=== PATIENT | female | born 1990 | race Caucasian/White ===

== ENCOUNTER 2018-02-26 19:32 | Inpatient (IN) | payer BC ==
[~2018-02-26] VITALS: Ht 166.4 cm; Wt 83.9 kg
[~2018-02-26 19:32] MED LIST: ACET-1966 PO; CALC-515 PO; IRON18TA2 PO; PREN-127 PO
[2018-02-26] MEDS ORDERED: LR(*) 1000 ML BAG 1,000 ML IV PRN (19:34)
[2018-02-26] MEDS ORDERED: FAMOTIDINE(*) 20MG/50ML PREMIX 50 ML IVPB PRN (19:34)
[2018-02-26] MEDS ORDERED: ONDANSETRON 4 MG/2 ML VIAL IVP PRN (19:35)
[2018-02-26] MEDS ORDERED: DINOPROSTONE 10 MG INSERT PV ONE (19:35)
[2018-02-26] MEDS ORDERED: FLUSH 10 ML SYR IVP PRN (19:35)
[2018-02-26] MEDS ORDERED: METOCLOPRAMIDE 10 MG/2 ML SDV IVP PRN (19:35)
[2018-02-26] MEDS ORDERED: ACETAMINOPHEN 325 MG TAB PO PRN (19:35)
[2018-02-26] MEDS ORDERED: LIDOCAINE/SOD BICARB 8.4% SYR SC PRN (19:35)
[2018-02-26] MEDS ORDERED: TERBUTALINE SULF 1 MG/ML VIAL SUBQ PRN (19:35)
[2018-02-26] MEDS ORDERED: fentaNYL CITR 100 MCG/2 ML AMP IVP PRN ×2 (19:35)
[2018-02-26] MEDS ORDERED: LIDOCAINE 1% LOCAL 300 MG/30ML INJ PRN (19:35)
[2018-02-26] MEDS ORDERED: FAMOTIDINE 20 MG TAB PO PRN (19:35)
[2018-02-26] MEDS ORDERED: ZOLPIDEM TARTRATE 10 MG TAB PO PRN (20:32)
[2018-02-26 21:02] LABS: PLATELET COUNT, AUTOMATED 119 K/uL (150-450)
[2018-02-26 21:28] VITALS: BP 122/60; Ht 166.4 cm; Wt 83.9 kg
[2018-02-26] MEDS: LR(*) 1000 ML BAG 1,000 ML IV SCH (22:39)
[2018-02-27] MEDS ORDERED: FENTANYL/ROPIVACAINE 100 ML BAG EPI PRN (04:15)
[2018-02-27] MEDS ORDERED: BUPIVACAINE 0.25% MPF INJ EPI PRN (04:15)
[2018-02-27] MEDS ORDERED: LIDO/EPI 2% MPF 1:200,000 20ML EPI PRN (04:15)
[2018-02-27] MEDS ORDERED: ePHEDrine 25 MG/5 ML DISP.SYR IVP PRN (04:15)
[2018-02-27] MEDS ORDERED: EPIDURAL KEYS XX PRN (04:15)
[2018-02-27] MEDS ORDERED: LIDOCAINE/PF 2% 200MG/10ML AMP 200 MG/10 ML AMPUL EPI PRN (04:15)
[2018-02-27] MEDS ORDERED: fentaNYL CITR 100 MCG/2 ML AMP IT PRN (04:15)
[2018-02-27] MEDS: LR(*) 1000 ML BAG 1,000 ML IV SCH (04:31)
[2018-02-27] MEDS ORDERED: OXYTOCIN 30 UNIT/D5LR 500 ML 0 ML ONE (04:52)
[2018-02-27] MEDS ORDERED: OXYTOCIN 30 UNIT/D5LR 500 ML 500 ML IV PRN (06:17)
--- NOTE | 2018-02-27 07:28 | History & Physical ---
History of Present Illness Age of Patient: 28 : 2 Para or TPAL: 1001 EDC per LMP: Mar 06, 2018 EDC per U/S: Feb 27, 2018 Estimated Gestational Age: 40.0 Chief Complaint Elective labor induction. History of Present Illness Admitted at term for elective induction of labor. No OB complications. Given intravaginal Cervidil last evening, and started to have contractions that became regular and painful at about 0100 hours. She received an epidural anesthetic, and is now comfortable. record is reviewed. History Patient's Blood Type: A Positive Rubella Status: Immune Group B Strep Screen: Negative (01/27/18) Obstetrical History: First resulted in a term vaginal of a healthy male . Past Medical History: Kidney stone age 14, had lithotripsy. Hx PCOS, formerly took Metformin. Hx anxiety and depression in past, not taking meds. Allergies: Coded Allergies: No Known Drug Allergies (Unverified , 07/12/17) Social History: homemaker, present and supportive. Denies use of alcohol, tobacco, or illicit drugs. Med Rec Home Meds Reported Medications Acetaminophen (TYLENOL) 325 Mg Tablet, 325 MG PO, TAB 02/12/18 Calcium Carbonate (TUMS) 200 Mg Tab.chew, 200 MG PO, TAB.CHEW 02/12/18 Iron (IRON) 18 Mg Tablet, 18 MG PO 02/12/18 Vits W-Ca,Fe,Fa(<1MG) ( VITAMINS) 1 Each Tablet, 1 EACH PO DAILY, TAB 02/12/18 Exam General Exam Vital Signs Vital Signs Date Time Temp Pulse Resp B/P (MAP) Pulse Ox O2 Delivery O2 Flow Rate FiO2 02/26/18 21:28 98.4 111 16 122/60 (80) 97 Room Air General Apperance: Alert/Awake/No Acute Distress (comfortable with epidural) Neuro: No Gross deficits Eyes: Normal Extraocular Movement & Vison ENT: Normal, Moist Mucous Membranes Neck: No Masses Cardiovascular: Regular Rate and Rhythm Respiratory: No Respiratory Distress, Clear to Auscultation Abdomen: Gravid - Non-Tender : No CVA Tenderness Musculoskeletal: No Weakness/Pain Extremities: No Cyanosis,Clubbing or Edema, Reflexes (2+/4 and symmetric) Integumentary: Skin Intact without Lesions or Rash Psychological: Alert & Oriented X3, Appropriate Mood & Affect Cervical Dialation: 1 (at 2100 hours last evening, per RN) Cervical Effacement (%): 50 Station: -2 Presentation: Vertex Fetus Heart Tones: 130 FHT Category: I Medical Decision Making Data Points Result Diagram: 02/26/182053 VTE Prophylasis: Adult Pharmacological Contraindicati: Pt at Low Risk for VTE Mechanical Contraindications: Pt at Low Risk for VTE Assessment and Plan Problems: (1) 40 weeks gestation of Status: Acute Assessment & Plan: Induction started last evening with intravaginal Cervidil, which was removed recently, although contraction pattern appears functional. Comfortable with epidural anesthetic. I anticipate normal delivery later today. Copies to: SENAIT OLVERA MARK F MD Feb 27, 2018 07:28
[2018-02-27] MEDS ORDERED: ceFAZolin(*) 2GM/D5W 50ML 50 ML IVPB PRN (07:55)
[2018-02-27] MEDS ORDERED: ACETAMINOPHEN 325 MG TAB PO PRN (10:15)
[2018-02-27] MEDS ORDERED: LANOLIN OINT 7 GM TUBE TP PRN (10:15)
[2018-02-27] MEDS ORDERED: MAGNESIUM HYDROXIDE* 30ML UDCP PO PRN (10:15)
[2018-02-27] MEDS ORDERED: GLYCERIN/WITCH HAZEL LEAF 1 PK TP PRN (10:15)
[2018-02-27] MEDS ORDERED: BENZOCAINE 20% 60 ML BTL TP PRN (10:15)
[2018-02-27] MEDS ORDERED: APAP/HYDROCODONE 325/5 TAB PO PRN (10:15)
[2018-02-27] MEDS ORDERED: HYDROCORTISONE 2.5% CR 30GM TB PR PRN (10:15)
--- NOTE | 2018-02-27 10:20 | OB Delivery Note ---
Delivery Note Vaginal Delivery Type: Spont. Vaginal Delivery Delivery Date: Feb 27, 2018 Delivery Time: 09:23 Estimated Gestational Age(wks): 40 Length of Labor Stage I (hrs): 6 Length of Labor Stage II (hrs): 0.2 Labor Stage III (minutes): 5 Delivery Anesthesia: Epidural Infant Sex: Female Infant Weight (gms): 3434 (7#9oz) Lucien Apgars: 1 Minute (9), 5 Minute (9) Repair Needed: 1st Degree Wheel And Pinion Inspector in Attendence: SENAIT Miranda DO Feb 27, 2018 10:20
--- NOTE | 2018-02-27 10:44 | Procedure Note ---
Anesthetic Placement Note Anesthesia Plan: CSE Permit for Anesthesia Signed: Yes Anesthesia Technique: Patient Sitting Anesthesia Prep: Betadine Interspace: L 3-4 Local Anesthetic: 1% Lidocaine, 25 Gauge Needle Amount Local - cc's: 5 Anesthesia Needle: 17g Touhy/Schliff Anesthesia Attempts: 3 Loss of Resistance: Normal Saline Depth of PETRA (cm): 7 Intrathecal Needle: 27 Gauge Pencan Cerebral Spinal Fluid: Yes, Clear Catheter Insertion (cm): 6 Catheter Type: Regalado - Spring Wound Epidural Dressing: Tegaderm, Tape, Adhesive Rochelle Anesthesia Tray: Lot Number ([id number]), Expiration Date (2018-09-30), Reference Number ([id number]) Comment: First attempt L3-4, PETRA at 7cm, paresthesia with insertion of spinal needle, needle withdrawn, unable to thread catheter, epidural needle withdrawn. Second attempt L4-5, PETRA 7cm, unable to insert spinal needle, unable to thread epidural catheter, epidural needle withdrawn. Pt. positioned on left side, sterile field maintained, new gloves. Third attempt L3-4, PETRA 6.5-7 cm, spinal needle inserted without paresthesia, Clear FFCSF, injection, epidural catheter threaded easily, epidural needle withdrawn. Anesthesia Medications: Intrathecal Dose: mcg Fentanyl (20), mg Marcaine MPF (2.5), Time (0522) Epidural Test Dose: 1.5 Lido/Epi (1:200,000), Dose - mL (3), Time (0524), Negative (no S/S IT or IV injection.) Epidural Loading Dose: 0.2% Ropivicaine, With Fentanyl 2mcg/ml, Dose - ml (15) , Time (0530), Other (in 5ml increments) Epidural Infusion: 0.2% Ropivicaine, With Fentanyl 2mcg/ml, Start Time: (0540) Epidural Pump Setting: Bolus Dose - mL (4), Lockout - Minutes (15), Maintenance Rate - mL/hr (8), Maximum per Hour - mL (24) Complications: transient paresthesia with attempted placement of spinal needle on 1st attempt. PATRIA RAVI CRNA Feb 27, 2018 06:19
[2018-02-27] MEDS: IBUPROFEN 800 MG TAB PO SCH ×2 (12:20→20:35)
[2018-02-27 13:00] VITALS: BP 97/54
--- NOTE | 2018-02-27 13:02 | Anesthesia OB Pre-Anes Eval ---
History of Present Illness Anesthesia Start Date: Feb 27, 2018 Anesthesia Start Time: 04:55 OB Anesthesia Diagnosis: induction - elective EDC: Feb 27, 2018 : 2 Para: 1 Pain Ratin Result Diagram: 02/26/182053 Height (Inches): 65.50 Weight (Pounds): 185 BMI Calculated: 30.31 Past Medical History Medical History: other (headaches) Surgical History: noncontributory Previous Anesthesia: general, epidural Attended Childbirth Classes?: No Hx Anesthesia Reactions: No Hx Family Anesthesia Reaction: No Home Meds Reported Medications Acetaminophen (TYLENOL) 325 Mg Tablet, 325 MG PO, TAB 02/12/18 Calcium Carbonate (TUMS) 200 Mg Tab.chew, 200 MG PO, TAB.CHEW 02/12/18 Iron (IRON) 18 Mg Tablet, 18 MG PO 02/12/18 Vits W-Ca,Fe,Fa(<1MG) ( VITAMINS) 1 Each Tablet, 1 EACH PO DAILY, TAB 02/12/18 Allergies: Coded Allergies: No Known Drug Allergies (Unverified , 07/12/17) Anesthesia OB ROS Neurological: migraines/headaches (history), seizures, neuropathy, other Airway Class: l GI ROS: clear liquids, ice chips Last Solids Date: Feb 26, 2018 Last Solids Time: 20:00 ASA Classification: 2 Assessment and Plan Anesthesia Plan: CSE Anesthesia Stop Day: Feb 27, 2018 Anesthesia Stop Time: 09:40 Epidural Catheter Removal: Removed by: (Epidural catheter will be removed later by staff rn at more convenient time.) PATRIA RAVI CRNA Feb 27, 2018 06:27
--- NOTE | 2018-02-27 16:13 | DELIVERY NOTE ---
DELIVERY DATE: February 27, 2018 SURGEON: Aravind Briscoe DO ANESTHESIA: Epidural. PREOPERATIVE DIAGNOSES 1. A 28-year-old 2, para 1, at 40 0/7 weeks' gestation. 2. Induction of labor. POSTOPERATIVE DIAGNOSES 1. A 28-year-old 2, para 1, at 40 0/7 weeks' gestation. 2. Induction of labor. 3. Delivered. PROCEDURE PERFORMED Spontaneous vaginal delivery with repair of first-degree midline laceration. FINDINGS Live-born female at 0923 February 27, 2018, with Apgars of 9 and 9, weighing 3434 g, 7 pounds 9 ounces, three-vessel cord, intact placenta, over a first-degree midline laceration. ESTIMATED BLOOD LOSS 400 mL PATHOLOGY None. COMPLICATIONS None known. CONDITION Stable times two. Mother and infant to remain in the LDRP. COUNTS Correct times two for all needles, laps, sponges, and instruments. LABOR SUMMARY The patient is a 28-year-old 2, para 1, who presented for induction of labor secondary to being 40 weeks. She received Cervidil overnight and began to contract spontaneously with Cervidil. She eventually requested an epidural and was given one accordingly. The patient continued to contract and progress spontaneously. At around 9:00 this morning, she was noted to be complete. The delivery team was called and assembled. DELIVERY SUMMARY The patient was placed in the dorsal lithotomy position. She was prepped and draped in the usual sterile manner. Upon maternal pushing, the 's head delivered in a controlled manner, followed by the anterior shoulder with gentle downward motion and the posterior shoulder with gentle upward motion with the remainder of the infant's body delivering spontaneously. Mouth and nose were bulb suctioned. The cord was clamped times two. After approximately two minutes post delivery, the cord was cut by the 's father. With the cord cut, the infant was allowed to stay on the maternal abdomen and chest. She remained there through remainder of the delivery process. Cord blood gases were obtained. The placenta delivered spontaneously with gentle cord traction. Oxytocin was infused to help the uterine tone. The uterus was massaged until firm. Upon inspection of the perineum, vagina, cervix, and labia, it was noted there was a first-degree midline laceration. This laceration was repaired with a 4-0 Vicryl in a [id number] manner. With the laceration inspected and noted to be hemostatic, the patient was cleaned. The labor bed was reassembled. The mother and were allowed to continue to watts. MARYCRUZ
[2018-02-27 17:48] VITALS: BP 114/64
[2018-02-27 18:27] VITALS: BP 106/56
[2018-02-27 19:36] VITALS: BP 105/52
[2018-02-27] MEDS: DOCUSATE CALCIUM 240 MG CAP PO SCH (20:35)
[2018-02-27 22:43] VITALS: BP 114/56
[2018-02-28] MEDS: IBUPROFEN 800 MG TAB PO SCH ×2 (03:46→12:05)
[2018-02-28 03:55] VITALS: BP 106/54
[2018-02-28 08:20] VITALS: BP 111/54
[2018-02-28] MEDS: DOCUSATE CALCIUM 240 MG CAP PO SCH (08:40)
--- NOTE | 2018-02-28 09:36 | OB/GYN Progress Note ---
OB Subjective Progress Notes Subjective Doing good this morning. Reports pain controlled. Tolerating regular diet. Ambulatory. Voiding with out any difficulty. with minimal difficulty. GI: NEG Nausea, NEG Vomiting, NEG Flatus, NEG Bowel Movement : Voiding Well, Vaginal Bleeding, Scant Pain: Mild Neurological: No Headache, No Other Eyes: No Visual Disturbances OB Objective Physical Exam Vital Signs Date Time Temp Pulse Resp B/P (MAP) Pulse Ox O2 Delivery O2 Flow Rate FiO2 02/28/18 08:20 97.6 85 16 111/54 (73) Room Air 02/27/18 17:48 95 General Appearance: Alert/Awake/No Acute Distress (comfortable with epidural) Neurological: No Gross deficits Eyes: Normal Extraocular Movement & Vison ENT: Normal Neck: No Masses Cardiovascular: Normal Rhythm & Peripheral Pulses, Regular Rate and Rhythm Respiratory: No Respiratory Distress, Clear to Auscultation Abdomen: Soft, Non-Tender, Non-Distended, Fundus Firm : Normal Musculoskeletal: No Weakness/Pain Extremities: No Cyanosis,Clubbing or Edema, Reflexes (2+/4 and symmetric) Integumentary: Skin Intact without Lesions or Rash Psychological: Alert & Oriented X3, Appropriate Mood & Affect Result Diagram: 02/28/18 0621 Assessment and Plan [employer] Assessment: Stable Problems: (1) 40 weeks gestation of Status: Acute Assessment & Plan: Doing good this morning. Meeting all post goals. Pt desires to be discharged home. SENAIT OLVERA DO Feb 28, 2018 09:36
[2018-02-28] MEDS ORDERED: IBUP800T37 PO (09:37)
[2018-02-28] MEDS ORDERED: LOR5/325 PO (09:37)
--- NOTE | 2018-02-28 09:39 | OB/GYN Discharge Summary ---
Discharge Summary Reason for Hosp/Final Diag: (1) 40 weeks gestation of Status: Acute Hospital Course & Plan: Presented for IOL secondary to being 40 weeks gestation. IOL went quickly. See delivery note for details of procedure. Pt remained in the hospital for 1 day post . Pt desired to be discharged home. Lates Vital Signs Vital Signs Date Time Temp Pulse Resp B/P (MAP) Pulse Ox O2 Delivery O2 Flow Rate FiO2 02/28/18 08:20 97.6 85 16 111/54 (73) Room Air 02/27/18 17:48 95 Weight (Pounds): 185 Result Diagram: 02/28/18 0621 Condition: Improved Discharge: Home Home Meds Active Scripts Ibuprofen (IBUPROFEN) 800 Mg Tablet, 800 MG PO Q8H@0400,1200,2000, #30 TAB 0 Refills Prov:SENAIT OLVERA DO 02/28/18 Hydrocodone Bit/Acetaminophen (HYDROCODON-ACETAMINOPHEN 5-325) 1 Each Tablet, 1- 2 EACH PO Q4H Y for PAIN, #30 TAB 0 Refills Prov:SENAIT OLVERA DO 02/28/18 Reported Medications Acetaminophen (TYLENOL) 325 Mg Tablet, 325 MG PO, TAB 02/12/18 Calcium Carbonate (TUMS) 200 Mg Tab.chew, 200 MG PO, TAB.CHEW 02/12/18 Iron (IRON) 18 Mg Tablet, 18 MG PO 02/12/18 Vits W-Ca,Fe,Fa(<1MG) ( VITAMINS) 1 Each Tablet, 1 EACH PO DAILY, TAB 02/12/18 [facility] [phone], Dr. Olvera [phone] Follow up in: 6 wks PP or PO Discharge Diet: As Tolerates Discharge Activity: As Tolerates, Pelvic Rest SENAIT OLVERA DO Feb 28, 2018 09:39
--- NOTE | 2018-02-28 13:34 | Anesthesia Post Eval Note ---
Anesthesia Post Eval Note Vital Signs 02/27/18 02/28/18 17:48 08:20 Temp 97.6 Pulse 85 Resp 16 B/P (MAP) 111/54 (73) Pulse Ox 95 O2 Delivery Room Air Pt able to participate in Eval: Yes Cardiovascular Status: Satisfactory Respiratory Status: Satisfactory Pain Managment: Satisfactory PO Nausea/Vomiting: Satisfactory Temperature Management: Satisfactory Mental Status: Satisfactory, Alert, Oriented X3 Post-Op Hydration Status: Satisfactory, Tolerating PO Well, Voiding w/o Difficulty Anesthesia Type: RODNEY POSEY CRNA Feb 28, 2018 13:34
[2018-03-01] MEDS ORDERED: DIPHTH/TETANUS/ACEL. PERTUSSIS IM ONLY ONE (09:00)
[2018-03-01] MEDS ORDERED: INFLUENZA VIRUS VAC 0.5 ML SYR IM ONLY ONE (09:00)
[2018-03-01] MEDS ORDERED: MEASLES,MUMP,RUBELLA VAC 0.5ML SUBQ ONE (09:00)
== END 2018-02-28 12:15 | disposition home or self-care (01) | DRG 775 ==
LOC: OB 19:32
PROVIDERS: ADMIT Obstetrics & Gynecology; ATTEND Obstetrics & Gynecology
PROC: 3E0P7VZ Introduction of Hormone into Female Reproductive, Via Natural or Artificial Opening (ICD-10-PCS; 2018-02-26)
PROC: 10E0XZZ Delivery of Products of Conception, External Approach (ICD-10-PCS; principal; 2018-02-27)
PROC: 0HQ9XZZ Repair Perineum Skin, External Approach (ICD-10-PCS; 2018-02-27)
DX: O70.0 First degree perineal laceration during delivery (principal); E28.2 Polycystic ovarian syndrome; Z37.0 Single live birth; Z3A.40 40 weeks gestation of pregnancy
CPT/HCPCS: 36415; 85025; 85027; 86850; 86900; 86901; J7120